=== PATIENT | female | born 1955 | race Caucasian/White ===

== ENCOUNTER 2020-02-28 10:56 | Outpatient (CLI) | payer OTHER ==
--- NOTE | 2020-02-28 13:45 | DEXA Report ---
PROCEDURE: Dexa Spine and/or Hip INDICATIONS: POSTMENOPAUSAL TECHNIQUE: Dual energy x-ray absorptiometry (DXA) was performed on a [employer] System. Regions measur ed are the AP Spine, femoral neck, and if needed forearm. COMPARISON: None. FINDINGS: Lumbar Spine: Bone Mineral Density 0.897 g/cm/cm,T score -2.4, osteopenia Left Hip: Bone Mineral Density 0.759 g/cm/cm,T score -2.0, osteopenia Left Femoral Neck: Bone Mineral Density 0.767 g/cm/cm, T score -2.0, osteopenia (T score greater or equal to -1.0: NORMAL) (T score from -1.1 to -2.4: OSTEOPENIA) (T score less than or equal to -2.5 to: OSTEOPOROSIS) Impression: Osteopenia at the lumbosacral spine and left hip overall, and also at the left femoral ne ck. Patients with diagnosis of osteoporosis or osteopenia should have regular bone mineral density assess ment. For those eligible for Medicare, routine testing is allowed once every 2 years. Testing frequ ency can be increased for patients who have rapidly progressing disease or for those who are receivin g medical therapy to restore bone mass. Reviewed by: Kapil Montes MD on 02/28/2020 1:43 PM PST Approved by: Kapil Montes MD on 02/28/2020 1:43 PM PST Station ID: [id number]
== END 2020-02-28 10:57 | disposition home or self-care (01) ==
LOC: DI 10:56
PROVIDERS: ATTEND Physician Assistant Medical
DX: M85.89 Other specified disorders of bone density and structure, multiple sites (principal); Z78.0 Asymptomatic menopausal state

== ENCOUNTER 2020-12-04 08:00 | Outpatient (CLI) | payer OTHER ==
--- NOTE | 2020-12-04 15:13 | XRAY Report ---
PROCEDURE: Ankle 3 View RT INDICATIONS: SPRAIN OF R ANKLE TECHNIQUE: 3 views of the ankle were acquired. COMPARISON: None. FINDINGS: Bones: No fractures or dislocations. Ankle mortise is normally aligned. No suspicious bony lesions . Soft tissues: No tibiotalar joint effusion. IMPRESSION: No acute osseous abnormality. Reviewed by: Benedicto Bush MD on 12/04/2020 3:11 PM PDT Approved by: Benedicto Bush MD on 12/04/2020 3:11 PM PDT Station ID: [id number]
--- NOTE | 2020-12-04 15:14 | XRAY Report ---
PROCEDURE: Foot 3 View RT INDICATIONS: SPRAIN OF R FOOT TECHNIQUE: 3 views of the foot were acquired. COMPARISON: February 02, 2017 FINDINGS: BONES/JOINT: No acute, displaced fracture or dislocation. No substantial joint effusion. SOFT TISSUES: No significant abnormality. IMPRESSION: 1.No acute osseous abnormality. Reviewed by: Benedicto Bush MD on 12/04/2020 3:13 PM PDT Approved by: Benedicto Bush MD on 12/04/2020 3:13 PM PDT Station ID: [id number]
== END 2020-12-04 23:59 | disposition home or self-care (01) ==
LOC: DI.N 08:00
PROVIDERS: ATTEND Physician Assistant Medical
DX: S93.601A Unspecified sprain of right foot, initial encounter (principal)

== ENCOUNTER 2021-01-07 08:16 | Outpatient (CLI) | payer OTHER ==
[2021-01-07 12:53] LABS: ALBUMIN 4.5 g/dL (3.2-5.5); ALBUMIN/GLOBULIN RATIO 1.6 (1.0-2.2); ALKALINE PHOSPHATASE 79 IU/L (42-121); ALT ALANINE AMINOTRANSFERASE 25 IU/L (10-60); AST ASPARTATE AMINOTRANSFERASE 26 IU/L (10-42); BILIRUBIN,TOTAL 0.8 mg/dL (0.2-1.0); BUN - BLOOD UREA NITROGEN 12 mg/dL (6-20); CALCIUM 9.9 mg/dL (8.5-10.3); CARBON DIOXIDE - CO2 28 mmol/L (21-32); CHLORIDE 102 mmol/L (101-111); CHOL/HDL RATIO 2.8 (<4.4); CHOLESTEROL 242 mg/dL; CREATININE 0.8 mg/dL (0.4-1.0); GFR - MDRD 72 (>89); GLUCOSE 92 mg/dL (70-100); HDL CHOLESTEROL 86 mg/dL; LDL CHOLESTEROL,CALCULATED 145 mg/dL; LDL/HDL RATIO 1.7 (<4.4); POTASSIUM 4.6 mmol/L (3.5-5.0); SODIUM 140 mmol/L (135-145); TOTAL PROTEIN 7.4 g/dL (6.7-8.2); TRIGLYCERIDES 55 mg/dL; VLDL CHOLESTEROL 11 mg/dL
[2021-01-07 12:56] LABS: THYROID STIMULATING HORMONE 1.51 uIU/mL (0.34-5.60)
[2021-01-07 12:57] LABS: BASOPHILS # (AUTO) 0.1 10^3/uL (0.0-0.1); BASOPHILS % (AUTO) 1.4 %; EOSINOPHILS # (AUTO) 0.1 10^3/uL (0.0-0.7); EOSINOPHILS % (AUTO) 1.8 %; HCT - HEMATOCRIT 45.7 % (37.0-47.0); HGB - HEMOGLOBIN 15.1 g/dL (12.0-16.0); LYMPHOCYTES # (AUTO) 1.2 10^3/uL (1.5-3.5); LYMPHOCYTES % (AUTO) 28.1 %; MEAN CORPUSCULAR VOLUME 99.8 fL (81.0-99.0); MEAN PLATELET VOLUME 9.4 fL (7.9-10.8); MONOCYTES # (AUTO) 0.4 10^3/uL (0.0-1.0); MONOCYTES % (AUTO) 9.4 %; NEUTROPHILS # (AUTO) 2.6 10^3/uL (1.5-6.6); NEUTROPHILS % (AUTO) 59.1 %; PLT - PLATELET COUNT 347 10^3/uL (130-450); RED BLOOD COUNT 4.58 10^6/uL (4.20-5.40); RED CELL DISTRIBUTION WIDTH 12.9 % (12.0-15.0); WHITE BLOOD COUNT 4.4 x10^3/uL (4.8-10.8)
== END 2021-01-07 23:59 | disposition home or self-care (01) ==
LOC: LAB.WCP 08:16
PROVIDERS: ATTEND Family Medicine
DX: R07.89 Other chest pain (principal)
CPT/HCPCS: 36415; 80053; 80061; 83721; 84443; 84484; 85025

== ENCOUNTER 2021-04-25 10:50 | Outpatient (CLI) | payer OTHER ==
--- NOTE | 2021-04-25 12:41 | Ultrasound Report ---
PROCEDURE: Pelvic w/Transvaginal INDICATIONS: OTHER OVARIAN CYST, RIGHT SIDE TECHNIQUE: Real-time scanning was performed of the pelvic organs, with image documentation. Additional endovagi nal scanning was necessary due to incomplete visualization of the adnexal and endometrial structures by transabdominal scanning. COMPARISON: July 24, 2008. FINDINGS: UTERUS: Anteverted, heterogeneous echotexture, and measures 7.7 x 2.2 x 4.2 cm. The endometrial complex measures 1.9 mm. Hypoechoic lesions within the cervix, compatible with nabothian cysts. RIGHT OVARY: 3.6 x 2.5 x 3.1 cm. Hypoechoic lesion within the right ovary, measuring up to 3.4 cm, co mpatible a cyst. Color-flow projects over the ovarian tissue. LEFT OVARY: 1.8 x 0.7 x 0.9 cm. Color-flow projects over the ovarian tissue. OTHER: None. IMPRESSION: 1.Simple appearing cyst in the right ovary. Consider yearly follow-up ultrasound until resolution. Reviewed by: Benedicto Bush MD on 04/25/2021 12:39 PM PST Approved by: Benedicto Bush MD on 04/25/2021 12:39 PM PST Station ID: [id number]
== END 2021-04-25 10:51 | disposition home or self-care (01) ==
LOC: DI 10:50
PROVIDERS: ATTEND Nurse Practitioner Family
DX: N83.291 Other ovarian cyst, right side (principal)

== ENCOUNTER 2022-04-24 11:48 | Outpatient (CLI) | payer OTHER ==
--- NOTE | 2022-04-24 21:00 | Ultrasound Report ---
PROCEDURE: Pelvic w/Transvaginal INDICATIONS: RIGHT SIDE OVARIAN CYST TECHNIQUE: Real-time scanning was performed of the pelvic organs, with image documentation. Additional endovagi nal scanning was necessary due to incomplete visualization of the adnexal and endometrial structures by transabdominal scanning. COMPARISON: None. FINDINGS: Uterus: Uterus is anteverted and normal in size at 5.5 x 3.6 x 2.5 cm. The myometrium is homogeneou s. The endometrium measures 4 mm in combined thickness. No fibroids. Small calcification at the pos terior cervical wall measuring 0.2 cm. No internal vascularity. Ovaries: The right ovary measures 3.3 x 2.8 x 2.5 cm, with a calculated ovarian volume of 12 cc. Th e left ovary measures 1.6 x 1.4 x 1 cm, with a calculated ovarian volume of 1 cc. The ovaries have a normal sonographic appearance. Less than 12 follicles can be seen in each ovary. Anechoic right ova oleg cyst measuring 3 x 2.1 x 2 cm. No mural nodule. No internal vascularity. Other: No pathologic free abdominal or pelvic fluid. IMPRESSION: Simple right ovarian cyst measuring 3 cm. Reviewed by: Keith Koo MD on 04/24/2022 8:59 PM PST Approved by: Keith Koo MD on 04/24/2022 8:59 PM PST Station ID: [id number]
== END 2022-04-24 11:49 | disposition home or self-care (01) ==
LOC: DI 11:48
PROVIDERS: ATTEND Physician Assistant Medical
DX: N83.291 Other ovarian cyst, right side (principal)

== ENCOUNTER 2023-04-28 18:35 | Outpatient (CLI) | payer OTHER ==
--- NOTE | 2023-04-29 09:49 | XRAY Report ---
PROCEDURE: Thoracic Spine 3V INDICATIONS: BACK PAIN, THORACIC REGION TECHNIQUE: 3 views of the thoracic spine were acquired. COMPARISON: None. FINDINGS: Bones: There are mild degenerative changes. No acute vertebral body height loss. No traumatic subluxa tion. Mild to moderate cervical degenerative changes also partially seen. Soft tissues: No suspicious calcifications. IMPRESSION: Mild spondylosis. No acute radiographic abnormality. If there is high concern for further derangement , consider MRI evaluation. Reviewed by: Christopher Figueroa MD on 04/29/2023 9:48 AM [facility] Approved by: Christopher Figueroa MD on 04/29/2023 9:48 AM [facility] Station ID: [id number]
== END 2023-04-28 18:36 | disposition home or self-care (01) ==
LOC: DI 18:35
PROVIDERS: ATTEND Physician Assistant Medical
DX: M47.814 Spondylosis without myelopathy or radiculopathy, thoracic region (principal)

== ENCOUNTER 2023-05-20 12:29 | Outpatient (CLI) | payer OTHER ==
--- NOTE | 2023-05-20 14:35 | Ultrasound Report ---
PROCEDURE: Transvaginal INDICATIONS: OVARIAN CYST TECHNIQUE: Real-time endovaginal scanning was performed of the pelvic organs, with image documentation. COMPARISON: 04/24/2022. FINDINGS: Uterus: Uterus is anteverted and normal in size at 6.0 x 2.2 x 3.4 cm. The myometrium is heterogene ous. The endometrium measures 3.1 mm in combined thickness. No uterine fibroids Ovaries: The right ovary measures 3.4 x 2.3 x 3.2 cm, with a calculated ovarian volume of 13.1 cc. The left ovary is not seen. Right ovarian cyst measuring 3.0 x 2.3 x 2.9 cm, previously measuring 3. 0 x 2.1 x 2.0 cm. Other: No pathologic free abdominal or pelvic fluid. IMPRESSION: Grossly similar to mildly increased size of right ovarian simple appearing cyst measuring 3.0 cm. Con machine tracer continued yearly follow-up. Reviewed by: Deuce Acosta MD on 05/20/2023 2:33 PM PDT Approved by: Deuce Acosta MD on 05/20/2023 2:33 PM PDT Station ID: [id number]
== END 2023-05-20 12:30 | disposition home or self-care (01) ==
LOC: DI 12:29
PROVIDERS: ATTEND Obstetrics & Gynecology
DX: N83.291 Other ovarian cyst, right side (principal)